=== PATIENT | female | born 1930 | race Caucasian/White ===

== ENCOUNTER → 2017-02-26 | Outpatient (CLI) | payer MEDICARE ==
[~2017-02-26] MED LIST: ASPIRIN81 M1 PO; AUGMENTIN 875875 MG PO; HYDROCODONE BIT1 T11 PO; KEPPRA500 MG PO; MULTIVITAMIN1 CTB PO; OCUVITE1 TA1 PO; VITAMIN B12500 MCG PO; VITAMIN D1000 IU PO; ZETIA10 MG PO; ZOFRAN4 MG PO
== END | disposition home or self-care (01) ==
LOC: RAD 10:41
DX: Z13.820 Encounter for screening for osteoporosis (principal); M81.0 Age-related osteoporosis without current pathological fracture; N95.9 Unspecified menopausal and perimenopausal disorder; Z90.710 Acquired absence of both cervix and uterus

== ENCOUNTER 2017-09-14 17:27 | Emergency (ER) | payer MEDICARE ==
[~2017-09-14] VITALS: Wt 45.4 kg
[2017-09-14] MEDS ORDERED: CALCITRATE200 MG PO (17:38)
[2017-09-14 19:00] LABS: BILIRUBIN NEGATIVE (NEGATIVE); BLOOD NEGATIVE (NEGATIVE); COLOR YELLOW (YELLOW); GLUCOSE NEGATIVE (NEGATIVE); KETONE TRACE (NEGATIVE); LEUKO ESTERASE 1+ (NEGATIVE); NITRITE NEGATIVE (NEGATIVE); PH 5.5 (5.0-9.0); SPECIFIC GRAVITY 1.025 (1.005-1.030); UROBILINOGEN 0.2 E.U./dl (0.2-1.0)
[2017-09-14 19:07] LABS: WBC TNTC wbc/hpf (0-5)
[2017-09-14 19:08] LABS: CLARITY SL CLOUDY (CLEAR)
[2017-09-14] MEDS ORDERED: SEPTDS PO (19:11)
== END 2017-09-14 19:21 | disposition home or self-care (01) ==
LOC: ED 17:27
PROVIDERS: Nurse Practitioner Family
DX: N39.0 Urinary tract infection, site not specified (principal); R03.0 Elevated blood-pressure reading, without diagnosis of hypertension; M19.90 Unspecified osteoarthritis, unspecified site; E78.5 Hyperlipidemia, unspecified; Z90.49 Acquired absence of other specified parts of digestive tract; Z90.710 Acquired absence of both cervix and uterus; Z79.899 Other long term (current) drug therapy